=== PATIENT | female | born 1990 | race Caucasian/White ===

== ENCOUNTER 2021-10-02 18:15 | Inpatient (IN) | payer BC ==
[~2021-10-02] VITALS: Ht 172.7 cm; Wt 61.8 kg
[~2021-10-02 18:15] MED LIST: HYDR-4808 PO; LURA20TA PO
[2021-10-02] MEDS: LORazepam 2 MG TABLET PO PRN (19:37)
[2021-10-02] MEDS: HALOPERIDOL 5 MG TABLET PO PRN (19:37)
[2021-10-02 19:50] VITALS: BP 109/76
[2021-10-02] MEDS: ZOLPIDEM TARTRATE 10 MG TABLET PO PRN (21:08)
[2021-10-03 05:41] VITALS: BP 116/67
[2021-10-03 08:13] VITALS: BP 100/56
[2021-10-03 08:13] LABS: BASOPHILS % (AUTO) 0.9 % (0.0-2.0); HEMOGLOBIN 13.1 g/dL (12.0-16.0); LYMPHOCYTES # (AUTO) 2.3 K/uL (1.0-4.8); LYMPHOCYTES % (AUTO) 25.8 % (22.0-44.0); MEAN CORPUSCULAR HEMOGLOBIN 29.8 pg (26.0-34.0); MEAN CORPUSCULAR HGB CONC 34.5 G/dL (31.0-37.0); MEAN CORPUSCULAR VOLUME 86 fL (80-100); MONOCYTES % (AUTO) 11.2 % (2.0-9.0); NEUTROPHILS # (AUTO) 5.3 K/uL (1.8-7.7); NEUTROPHILS % (AUTO) 60.1 % (40.0-70.0); PLATELET COUNT (AUTO) 253 K/uL (150-450); RED BLOOD CELL COUNT(AUTO) 4.41 MIL/uL (4.00-5.20); RED CELL DISTRIBUTION WIDTH 13.2 % (11.5-14.5)
[2021-10-03 08:22] LABS: HEMOGLOBIN A1C 5.3 % (3.8-5.6)
[2021-10-03] MEDS: BACITRACIN 28 GM OINTMENT TP SCH ×2 (08:22→17:11)
[2021-10-03 08:35] LABS: ALANINE AMINOTRANSFERASE 18 U/L (12-78); ALBUMIN 3.1 g/dL (3.4-5.0); ALKALINE PHOSPHATASE 71 U/L (46-116); ANION GAP 6 mmol/L (8-16); ASPARTATE AMINOTRANSFERASE 12 U/L (15-37); BILIRUBIN,TOTAL 0.6 mg/dL (0.1-1.0); CALCIUM, TOTAL 8.4 mg/dL (8.8-10.5); CARBON DIOXIDE 29 mmol/L (22-29); CHLORIDE 102 mmol/L (98-107); CHOL/HDL RATIO 2.6 (3.9-5.7); CHOLESTEROL 144 mg/dL (131-200); CREATININE 0.83 mg/dL (0.60-1.30); FREE T4 (FREE THYROXINE) 0.99 ng/dL (0.76-1.46); GLOMERULAR FILTR. RATE CALC > 60 mL/min (>60); GLUCOSE,RANDOM 82 mg/dL (70-110); HCG,QUANTITATIVE < 1 mIU/mL (0-6); HDL CHOLESTEROL 55 mg/dL (40-60); LDL CHOL (CALC.) 83 mg/dL (0-130); POTASSIUM 4.1 mmol/L (3.5-5.1); SODIUM SERUM 137 mmol/L (136-145); THYROID STIMULATING HORMONE 1.31 uIU/mL (0.36-3.74); TOTAL PROTEIN, SERUM 6.4 g/dL (6.4-8.2); TRIGLYCERIDES 31 mg/dL (15-150); UREA NITROGEN, BLOOD 11 mg/dL (7-18)
[2021-10-03 09:35] VITALS: BP 112/68
[2021-10-03] MEDS: LORazepam 2 MG TABLET PO PRN ×3 (09:38→21:12)
[2021-10-03] MEDS: HALOPERIDOL 5 MG TABLET PO PRN (17:11)
[2021-10-03] MEDS: NICOTINE POLACRILEX 2 MG LOZENGE PO PRN (17:11)
[2021-10-03] MEDS ORDERED: CloNIDine HCL 0.1 MG TABLET PO PRN (17:45)
[2021-10-03] MEDS ORDERED: MAGNESIUM HYDROXIDE SUSPENSION 30 ML UDCUP PO PRN (17:45)
[2021-10-03] MEDS ORDERED: LOPERAMIDE HCL 2 MG CAPSULE PO PRN (17:45)
[2021-10-03] MEDS ORDERED: IBUPROFEN 600 MG TABLET PO PRN (17:45)
[2021-10-03] MEDS ORDERED: ALBUTEROL SULFATE HFA 90 MCG/PUFF 8 GM INHALER IH PRN (17:45)
[2021-10-03] MEDS ORDERED: DOCUSATE SODIUM 100 MG CAPSULE PO PRN (17:45)
[2021-10-03] MEDS ORDERED: OMEPRAZOLE 20 MG CAPSULE PO PRN (17:45)
[2021-10-03] MEDS ORDERED: MAG HYDROX/AL HYDROX/SIMETH ES 30 ML SUSPENSION UDCUP PO PRN (17:45)
[2021-10-03] MEDS ORDERED: ACETAMINOPHEN 325 MG TABLET PO PRN (17:45)
[2021-10-03] MEDS ORDERED: BENZOCAINE/MENTHOL LOZENGE PO PRN (17:45)
[2021-10-03] MEDS ORDERED: PETROLATUM,WHITE 28 GM JELLY TP PRN (17:45)
[2021-10-03] MEDS ORDERED: ONDANSETRON HCL 4 MG TABLET PO PRN (17:45)
[2021-10-03] MEDS ORDERED: BACITRACIN 28 GM OINTMENT TP PRN (17:45)
[2021-10-03 20:05] VITALS: BP 110/62
[2021-10-03] MEDS: LURASIDONE HCL 80 MG TABLET PO SCH (21:07)
[2021-10-03] MEDS: DIVALPROEX SODIUM 500 MG DR TABLET PO SCH (21:08)
[2021-10-03] MEDS: ZOLPIDEM TARTRATE 10 MG TABLET PO PRN (21:08)
[2021-10-04 08:10] VITALS: BP 101/62
[2021-10-04] MEDS: BACITRACIN 28 GM OINTMENT TP SCH ×2 (08:22→16:11)
[2021-10-04] MEDS: DIVALPROEX SODIUM 500 MG DR TABLET PO SCH ×2 (08:22→20:18)
[2021-10-04 09:00] VITALS: BP 108/74
[2021-10-04] MEDS: NICOTINE POLACRILEX 2 MG LOZENGE PO PRN ×2 (09:20→16:30)
[2021-10-04] MEDS: LORazepam 2 MG TABLET PO PRN ×3 (09:20→20:18)
[2021-10-04] MEDS: HALOPERIDOL 5 MG TABLET PO PRN (12:26)
[2021-10-04 17:27] VITALS: BP 107/75
[2021-10-04] MEDS: LURASIDONE HCL 80 MG TABLET PO SCH (20:18)
[2021-10-05 00:52] VITALS: BP 100/64
[2021-10-05] MEDS: BACITRACIN 28 GM OINTMENT TP SCH ×2 (08:45→16:07)
[2021-10-05] MEDS: DIVALPROEX SODIUM 500 MG DR TABLET PO SCH ×2 (08:45→20:19)
[2021-10-05] MEDS: LORazepam 2 MG TABLET PO PRN ×3 (08:52→17:07)
[2021-10-05 08:58] VITALS: BP 94/60
[2021-10-05] MEDS: HALOPERIDOL 5 MG TABLET PO PRN (13:38)
[2021-10-05] MEDS: NICOTINE POLACRILEX 2 MG LOZENGE PO PRN (14:26)
[2021-10-05 17:08] VITALS: BP 133/86
[2021-10-05] MEDS: ZOLPIDEM TARTRATE 10 MG TABLET PO PRN (20:19)
[2021-10-05] MEDS: LURASIDONE HCL 80 MG TABLET PO SCH (20:19)
[2021-10-06] MEDS: LORazepam 2 MG TABLET PO PRN ×5 (03:50→21:20)
[2021-10-06 07:48] VITALS: BP 130/85
[2021-10-06] MEDS: BACITRACIN 28 GM OINTMENT TP SCH ×2 (08:13→16:18)
[2021-10-06] MEDS: DIVALPROEX SODIUM 500 MG DR TABLET PO SCH ×2 (08:13→20:03)
[2021-10-06] MEDS: HALOPERIDOL 5 MG TABLET PO PRN ×3 (08:13→21:20)
[2021-10-06 10:40] VITALS: BP 124/75
[2021-10-06] MEDS: NICOTINE POLACRILEX 2 MG LOZENGE PO PRN ×2 (11:19→18:09)
[2021-10-06 16:28] VITALS: BP 118/72
[2021-10-06] MEDS: LURASIDONE HCL 80 MG TABLET PO SCH (20:03)
[2021-10-06] MEDS: ZOLPIDEM TARTRATE 10 MG TABLET PO PRN (20:04)
[2021-10-07 06:01] VITALS: BP 108/60
[2021-10-07] MEDS: DIVALPROEX SODIUM 500 MG DR TABLET PO SCH ×2 (08:38→20:08)
[2021-10-07] MEDS: BACITRACIN 28 GM OINTMENT TP SCH ×2 (08:39→16:18)
[2021-10-07] MEDS: LORazepam 2 MG TABLET PO PRN ×2 (11:35→17:10)
[2021-10-07] MEDS: NICOTINE POLACRILEX 2 MG LOZENGE PO PRN ×2 (12:06→18:25)
[2021-10-07] MEDS: HALOPERIDOL 5 MG TABLET PO PRN ×2 (12:25→17:10)
[2021-10-07 16:31] VITALS: BP 112/64
[2021-10-07] MEDS: ZOLPIDEM TARTRATE 10 MG TABLET PO PRN (20:09)
[2021-10-07] MEDS: LURASIDONE HCL 80 MG TABLET PO SCH (20:09)
[2021-10-08 01:17] VITALS: BP 110/60
[2021-10-08] MEDS: LORazepam 2 MG TABLET PO PRN ×3 (07:33→17:16)
[2021-10-08] MEDS: DIVALPROEX SODIUM 500 MG DR TABLET PO SCH ×2 (07:57→20:11)
[2021-10-08] MEDS: BACITRACIN 28 GM OINTMENT TP SCH ×2 (07:57→16:12)
[2021-10-08 08:16] VITALS: BP 111/80
[2021-10-08] MEDS: HALOPERIDOL 5 MG TABLET PO PRN (12:22)
[2021-10-08] MEDS: NICOTINE POLACRILEX 2 MG LOZENGE PO PRN (12:22)
[2021-10-08 16:09] VITALS: BP 117/74
[2021-10-08] MEDS: ZOLPIDEM TARTRATE 10 MG TABLET PO PRN (20:11)
[2021-10-08] MEDS: LURASIDONE HCL 80 MG TABLET PO SCH (20:11)
[2021-10-09 00:58] VITALS: BP 112/71
[2021-10-09 08:21] VITALS: BP 100/59
[2021-10-09] MEDS: DIVALPROEX SODIUM 500 MG DR TABLET PO SCH (08:31)
[2021-10-09] MEDS: BACITRACIN 28 GM OINTMENT TP SCH (08:34)
[2021-10-09 09:00] VITALS: BP 106/74
[2021-10-09] MEDS: HALOPERIDOL 5 MG TABLET PO PRN (10:58)
== END 2021-10-09 13:15 | DRG 885 ==
LOC: B3A 18:15
PROVIDERS: ADMIT Psychiatry & Neurology Psychiatry; ATTEND Psychiatry & Neurology Psychiatry
DX: F31.9 Bipolar disorder, unspecified (principal); F22 Delusional disorders; F41.9 Anxiety disorder, unspecified; G47.00 Insomnia, unspecified; Z20.822 Contact with and (suspected) exposure to COVID-19; K59.00 Constipation, unspecified; R62.50 Unspecified lack of expected normal physiological development in childhood; L30.9 Dermatitis, unspecified; Z56.0 Unemployment, unspecified; Z88.0 Allergy status to penicillin
CPT/HCPCS: 80053; 80061; 80164; 83036; 84439; 84443; 84702; 85025; Q0162; Q9967